=== PATIENT | female | born 1985 | race Caucasian/White ===

== ENCOUNTER 2019-05-07 22:15 | Emergency (ER) | payer OTHER, SELFPAY ==
--- NOTE | ~2019-05-07 | CT_ITS ---
EXAMINATION: CT brain wo con DATE: 05/08/2019 00:27 INDICATION: Dizziness. Frontal headache. TECHNIQUE: Computed tomography (CT) of the head was performed without intravenous contrast. Sagittal and coronal reconstructions were performed. Automated exposure control and iterative reconstruction t echnique were employed. The dose-length product was 605.33 mGy-cm. COMPARISON: None FINDINGS: No acute intracranial hemorrhage, acute infarction or abnormal extra axial fluid collection. Ventricl es are normal and symmetric. No mass/mass effect. Mild mucosal thickening the right ethmoid sinus. Th e orbits and mastoid air cells are normal. IMPRESSION: 1. Normal brain. No acute intracranial process. 2. Mild mucosal thickening the right ethmoid sinus. Reviewed, dictated and finalized at location A. ERT[employer] MANAGEMENT SUPERVISOR
--- NOTE | ~2019-05-07 | XR_ITS ---
EXAMINATION: XR chest 2V EXAM DATE: 05/07/2019 23:23 INDICATION: Midsternal chest pain. TECHNIQUE: Frontal and lateral projections of the chest obtained and reviewed. There is no prior lilia dy for comparison. FINDINGS: The lungs are clear. There are no pleural effusions. The cardiomediastinal silhouette is within normal limits. There is no pneumothorax suspected. The bones and soft tissues are unremarkab le. IMPRESSION: Normal chest x-ray exam. Reviewed, dictated and finalized at location A. OTHERAPIST IMPRESSION: Normal chest x-ray exam.
[2019-05-07 22:20] VITALS: BP 168/110; PULSE 103; RESP 16; TEMP 36.8; O2SAT 100
--- NOTE | 2019-05-07 22:27 | ED.CHESTPAIN ---
HPI - Chest Pain General Chief Complaint: Chest Pain Stated Complaint: dizzy, chest tightness Time Seen by Provider: 05/07/19 22:20 Source: patient and RN notes reviewed Mode of arrival: other Limitations: no limitations History of Present Illness HPI narrative: Pt is a 33 y/o female who presents to the ED with c/o intermittent left sided chest tightness pain that began two months ago. Pt notes that she went to her PCP today and her PCP requested blood work for tomorrow. Pt states that when she went to see her PCP her chief complaint was dizziness. Pt states that her dizziness began two months ago while at rest, but her dizziness has worsened the past week.. Pt describes her dizziness as disequilibrium. She denies falling. Pt denies being in pain currently, but she states that she is still dizzy. She notes that her chest tightness pain will last from seconds to a minute. Pt's LMP was 04/26/19. Pt also reports palpitations and a resolved DOE, but denies a fever, cough, SOB, vision changes, nasal congestion, tinnitus, rhinorrhea, calf pain, and calf swelling. MD complaint: chest pain Onset (ago): month(s) (2) Timing of current episode: other (intermittent) Pain location: left chest Quality: tightness Associated symptoms: palpitations and other (headache (resolved), dizziness) Related Data Allergies Allergy/AdvReac Type Severity Reaction Status Date / Time peanut Allergy Severe Swelling Verified 09/12/16 10:45 NUTS Allergy Mild Uncoded 10/08/07 19:42 Review of Systems Review of Systems: All systems reviewed & are unremarkable except as noted in HPI and below Constitutional: Constitutional: Denies fever(s) Eyes: Eyes: Denies change in vision ENT: Denies nasal congestion, Denies nasal discharge and Denies tinnitus Cardiovascular: Cardiovascular: Reports chest pain (left sided, tightness), Denies leg edema (calf) and Reports palpitations Respiratory: Respiratory: Denies cough and Denies dyspnea Musculoskeletal: Musculoskeletal: Denies other (calf pain) Neurologic: Reports dizziness and Reports headache(s) (resolved) [facility] Past Medical History Medical History (Updated 05/08/19 @ 03:08 by Theodora Padilla MD) History of hormone therapy Clomid Seasonal allergies Surgical History Surgical History (Updated 05/07/19 @ 22:53 by Lo Carranza) History of wisdom tooth extraction Social History Social History (Updated 05/07/19 @ 22:54 by Lo Carranza) Smoking status: Never smoker Gender identity (if verbalized by the patient): Female Exam Narrative: Exam Narrative: GENERAL: Well-appearing, well-nourished, and in no acute distress. HEAD: Normocephalic, atraumatic EYES: PERRLA and EOMI, conjunctiva clear without discharge EARS: TM's clear bilaterally without erythema or dullness NOSE: Nares clear, no rhinorrhea or epistaxis THROAT:Mucous membranes moist, Oropharynx normal without erythema, exudate, peritonsillar swelling or fluctuance NECK: Supple, without lymphadenopathy or mass RESPIRATORY: No respiratory distress, Airway patent, Respirations non-labored, Clear to auscultation without rales, rhonchi or wheeze HEART: Regular rate and rhythm. No murmur heard. Normal peripheral pulses. ABDOMEN: Soft, nontender, nondistended, normal active bowel sounds. No masses. No rebound or guarding, No organomegaly. EXTREMITIES: No edema, normal strength with full range of motion. SKIN: Warm, dry, normal color without rash NEURO: Alert and oriented x3. CN 2-12 grossly intact. No focal deficits. PSYCH: Normal mood and affect. Course Course Emergency Course: Santiago presented with atypical chest pain and dizziness that are likely unrelated. I discussed with we ruled out CA, PE, pneumonia. She did have some ethmoid thickening so she may have sinusitis as labyrinthitis as cause of he dizziness. She is being evaluated as outpatient by her PCP but did not want to wait. She is stable at this time to continue her
--- NOTE | 2019-05-07 22:37 | ECG_ITS ---
Measurements Intervals [place] Rate: 92 P: 55 ME: 171 QRS: 11 QRSD: 85 T: 0 QT: 342 QTc: 424 Interpretive Statements SINUS RHYTHM WITH SINUS ARRHYTHMIA POSSIBLE LEFT ATRIAL ENLARGEMENT LOW QRS VOLTAGE IN PRECORDIAL LEADS CANNOT RULE OUT SEPTAL INFARCT, AGE INDETERMINATE BORDERLINE T WAVE ABNORMALITY- ANT/INF LEADS BASELINE WANDER- I, II ABNORMAL ECG Electronically Signed On 05-08-2019 6:58:37 [employer] MANAGER by Danie Piña D.O.
[2019-05-07 22:46] VITALS: O2SAT 99
[2019-05-07] MEDS: MECLIZINE HCL 25 MG TABLET PO (22:50)
[2019-05-07 22:55] VITALS: BP 159/106; PULSE 84
[2019-05-07 22:56] VITALS: BP 146/99; BP 161/94; PULSE 86; PULSE 96
[2019-05-07 23:24] VITALS: BP 167/89; PULSE 81; RESP 16; TEMP 36.3; O2SAT 100
[2019-05-07 23:24] LABS: Basophils Absolute Auto 0.1 K/mm3 (0.0-0.1); Basophils Percent Auto 0.6 % (0.2-1.2); Eosinophils Percent Auto 0.3 % (0-4.4); Hematocrit 42.6 % (37.0-47.0); Hemoglobin 13.6 g/dL (12.0-15.0); Immature Granulocyte Absolute 0.03 K/mm3 (0.00-0.031); Immature Granulocyte Percent A 0.2 % (0-0.5); Lymphocytes Absolute Auto 3.16 K/mm3 (0.9-3.2); Lymphocytes Percent Auto 25.2 % (18.3-44.2); Mean Corpuscular HGB Conc 31.9 g/dl (32-36); Mean Corpuscular Hemoglobin 26.8 pg (26-34); Mean Corpuscular Volume 83.9 fl (80-100); Mean Platelet Volume 10.4 fl (7.4-10.4); Monocytes Absolute Auto 0.8 K/mm3 (0.1-0.6); Monocytes Percent Auto 6.5 % (2.6-8.5); Neutrophils Absolute Auto 8.4 K/mm3 (1.3-6.7); Neutrophils Percent Auto 67.2 % (45.5-73.1); Platelet Count Result 299 k/mm3 (150-375); Red Blood Count 5.08 M/mm3 (4.2-5.4); Red Cell Distribution Width 14.3 % (11.5-14.5); White Blood Count 12.5 K/mm3 (4.5-10.0)
[2019-05-07 23:34] LABS: Prothrombin Time 12.4 Seconds (11.1-14.7)
[2019-05-07 23:35] LABS: Partial Thromboplastin Time 31.3 SECONDS (22.3-36.8)
[2019-05-07 23:36] LABS: Blood Urea Nitrogen 10 mg/dL (7-17); Calcium 9.4 mg/dL (8.4-10.2); Carbon Dioxide 25 mmol/L (22-30); Chloride 98 mmol/L (98-107); Estimated CRCL calculation 83 ml/min; Estimated Glomerular Filt Rate > 60; Glucose 104 mg/dL (65-105); Potassium 3.3 mmol/L (3.4-5.0); Sodium 139 mmol/L (137-145)
[2019-05-08 00:02] LABS: D Dimer < 0.22 ug/mL (<0.48)
[2019-05-08 00:08] LABS: Troponin I < 0.012 ng/mL (0.000-0.034)
[2019-05-08] MEDS: LACTATED RINGERS 1,000 ML 999 ML IV CONT (00:41)
[2019-05-08 01:20] VITALS: BP 136/71; PULSE 71; RESP 18; O2SAT 100
[2019-05-08 02:55] LABS: Troponin I < 0.012 ng/mL (0.000-0.034)
[2019-05-08 03:20] VITALS: BP 124/74; PULSE 88; RESP 18; TEMP 36.8; O2SAT 100
[2019-05-08 03:21] VITALS: BP 124/74; PULSE 88; RESP 18; TEMP 36.8; O2SAT 100
== END 2019-05-08 03:22 | disposition home or self-care (01) ==
PROVIDERS: Emergency Provider General Practice; PCP Nurse Practitioner Family
DX: R07.89 Other chest pain (principal); R42 Dizziness and giddiness; R94.31 Abnormal electrocardiogram [ECG] [EKG]
CPT/HCPCS: 36415; 70450; 71046; 80048; 81025; 84484; 85025; 85380; 85610; 85730; 93005; 96360; 99284; A9270; J7120